=== PATIENT | female | born 1950 | race Caucasian/White ===

== ENCOUNTER → 2023-12-13 14:00 | Outpatient (CLI) | payer MEDICARE, OTHER, SELFPAY ==
[2023-12-13 15:14] LABS: Creatinine Urine Random 110.64 mg/dL
[2023-12-13 15:17] LABS: Add Manual Diff / Slide Review NO; Basophils Absolute Auto 0 /uL (0-100); Basophils Percent Auto 0.7 % (0-2); Eosinophils Absolute Auto 100 /uL (0-450); Eosinophils Percent Auto 1.6 % (2-4); Hematocrit 42.3 % (36-46); Hemoglobin 14.4 g/dL (12.0-16.0); Lymphocytes Absolute Auto 2500 /uL (1100-4500); Lymphocytes Percent Auto 36.5 % (25-40); Mean Corpuscular Hemoglobin 31.8 PG (26-34); Mean Corpuscular Volume 93.6 fL (80-100); Monocytes Absolute Auto 800 /uL (0-900); Monocytes Percent Auto 12.4 % (3-14); Neutrophils Absolute Auto 3300 /uL (1500-7000); Neutrophils Percent Auto 48.8 % (50-75); Platelet Count 246 X10^3/uL (150-400); Red Blood Cell Count 4.52 X10^6/uL (4.0-5.2); Red Cell Distribution Width 13.7 % (11.6-14.8); White Blood Cell Count 6.7 X10^3/uL (4.5-11.0)
[2023-12-13 15:35] LABS: Microalbumin Urine Random < 0.6 mg/dL (0-1.6)
[2023-12-13 15:40] LABS: Alanine Aminotransferase 19 IU/L (<35); Albumin 4.3 g/dL (3.5-5.0); Albumin Globulin Ratio 1.4 (1.0-2.8); Alkaline Phosphatase 92 U/L (38-126); Aspartate Aminotransferase 26 IU/L (14-36); BUN Creatinine Ratio 20.7 (6-22); Bilirubin Total 0.5 mg/dL (0.2-1.3); Blood Urea Nitrogen 24 mg/dL (7-17); Calcium 9.8 mg/dL (8.4-10.2); Carbon Dioxide 25 mmol/L (22-32); Chloride 104 mmol/L (98-107); Cholesterol 132 mg/dL (140-199); Estimated Glomerular Filt Rate 49 mL/min (>60); Glucose 111 mg/dL (80-110); HDL Cholesterol 33 mg/dL (40-60); HEMOLYSIS 45 (0-50); LDL Cholesterol Calculated 54 mg/dL (<100); Sodium 137 mmol/L (137-145); Total Protein 7.3 g/dL (6.3-8.2); Triglycerides 223 mg/dL (35-150)
[2023-12-13 15:49] LABS: NT-proBNP (BNP-Adult 18+) 560 pg/mL (<125)
== END ==
PROVIDERS: PCP Family Medicine; Referring Provider Family Medicine; Visit Provider Family Medicine
DX: E78.5 Hyperlipidemia, unspecified (principal); Z86.73 Personal history of transient ischemic attack (TIA), and cerebral infarction without residual deficits; Z87.09 Personal history of other diseases of the respiratory system; I99.9 Unspecified disorder of circulatory system; N19 Unspecified kidney failure; I50.9 Heart failure, unspecified; I11.0 Hypertensive heart disease with heart failure
CPT/HCPCS: 36415; 80053; 80061; 82043; 82570; 83880; 85025

== ENCOUNTER → 2024-01-11 12:08 | Outpatient (CLI) | payer MEDICARE, OTHER, SELFPAY ==
--- NOTE | 2024-01-11 12:10 | DI.RAD.S_ITS ---
PROCEDURE: XR HIP W PEL IF DONE LT 2V INDICATIONS: L hip pain TECHNIQUE: AP pelvis with lateral view of the left hip. COMPARISON: None. FINDINGS: Bones: No acute fractures or dislocations. Pelvic ring appears intact. No suspicious bony lesions. Mild degenerative spurring at the lateral acetabula bilaterally. Degenerative changes are seen in the included spine. Soft tissues: The visualized bowel gas pattern is normal. No suspicious soft tissue calcifications. Bilateral iliac stent grafts are present. IMPRESSION: 1. No acute bony abnormality. 2. Mild degenerative changes in the hips bilaterally. 3. Degenerative changes are seen in the included spine. Approved by: Rajat Heredia M.D. on 01/11/2024 at 15:27
== END ==
PROVIDERS: PCP Family Medicine; Referring Provider Family Medicine; Visit Provider Family Medicine
DX: M25.552 Pain in left hip (principal)
CPT/HCPCS: 73502

== ENCOUNTER → 2024-02-07 12:35 | Outpatient (CLI) | payer MEDICARE, OTHER, SELFPAY ==
--- NOTE | 2024-02-07 12:38 | DI.US.S_ITS ---
PROCEDURE: US ART LOW EXT BILAT W/HAILEE INDICATIONS: Atherosclerosis of wiyot arteries of extremities TECHNIQUE: Color and pulse Doppler interrogation was performed of both lower extremity arterial systems, with image documentation. COMPARISON: None. FINDINGS: Right lower extremity: HAILEE 0.7. External iliac artery with stent: Patent with mid stent stenosis. Proximal velocity 136 cm/s, mid stent velocity 263 cm/s, distal sent velocity 148 cm/s. Biphasic/triphasic waveforms. Common femoral artery: 133 cm/sec, with triphasic flow. Deep femoral artery: 122 cm/sec, with biphasic flow. Proximal superficial femoral artery: 86 cm/sec, with triphasic flow. Mid superficial femoral artery: 79 cm/sec, with triphasic flow. Distal superficial femoral artery: 77 cm/sec, with triphasic flow. Popliteal artery: Proximal: 55 cm/s, with biphasic flow. Distal: 39 cm/sec, with monophasic, low resistance flow. Posterior tibial artery: 50 cm/sec, with monophasic, low resistance flow. Anterior tibial artery/dorsalis pedis: 17 cm/sec, with monophasic, low resistance flow. Barboza-scale imaging description: There is a distal external iliac artery stent with a mid stent stenosis of 50% or greater. Findings are consistent with a hemodynamically significant popliteal artery stenosis, with low resistance monophasic waveforms distal to this region. Left lower extremity: HAILEE 0.7 Common femoral artery: 50 cm/sec, with parvus tardus monophasic, low resistance flow. Deep femoral artery: 38 cm/sec, with monophasic low resistance flow. Proximal superficial femoral artery: 54 cm/sec, with parvus tardus, monophasic low resistance flow. Mid superficial femoral artery: 59 cm/sec, with parvus tardus, monophasic low resistance flow. Distal superficial femoral artery: 46 cm/sec, with parvus tardus, monophasic low resistance flow. Popliteal artery: 33 cm/sec, with monophasic flow. Posterior tibial artery: 21 cm/sec, with monophasic high resistance flow. Anterior tibial artery/dorsalis pedis: 19 cm/sec, with monophasic high resistance flow. Barboza-scale imaging description: Waveform findings in the common femoral and SFA are consistent with high-grade inflow stenosis or occlusion involving the iliac. Runoff vessel high resistance monophasic waveforms are consistent with small vessel occlusive disease. IMPRESSION: 1. Bilateral ABIs are 0.7. 2. There is a distal right external iliac artery stent, which has a hemodynamically significant mid stent stenosis. 3. Findings in the right lower extremity are consistent with a hemodynamically significant popliteal artery stenosis. 4. Proximal vessel waveforms on the left are consistent with high-grade inflow stenosis or occlusion of the left iliac. 5. Findings on the left suggest distal small vessel hemodynamically significant stenotic or occlusive disease. Dictated by: Aung Harris M.D. on 02/08/2024 at 8:22 Approved by: Aung Harris M.D. on 02/08/2024 at 8:33
--- NOTE | 2024-02-07 13:50 | DI.US.S_ITS ---
PROCEDURE: US RETROPERITONEAL COMP INDICATIONS: ATHEROSCLEROSIS TECHNIQUE: Real-time scanning was performed of the abdominal aorta COMPARISON: [facility], , US ART LOW EXT BILAT W/HAILEE, 02/07/2024, 13:09. FINDINGS: Proximal aorta nonvisualized. Mid aorta measures 2.2 x 1.9 cm. Velocity 62 centimeters/second Distal aorta measures 2.1 x 2.4 cm, 53 centimeters/second Right common iliac artery measures 0.9 cm, 186 centimeters/second Left common iliac artery measures 0.9 cm, 130 centimeters/second. External iliac arteries are also evaluated, and the right external iliac arterial peak systolic velocity is elevated asymmetrically at 185 cm per 2nd. Possible stent noted IMPRESSION: No evidence of abdominal aortic aneurysm or significant stenosis. Elevated peak systolic velocity in the right common iliac artery as well as the right external iliac artery suggests stenosis without occlusion. Approved by: Oscar Monson M.D. on 02/08/2024 at 15:37
== END ==
LOC: US 12:37
PROVIDERS: PCP Family Medicine; Referring Provider Surgery Vascular Surgery; Visit Provider Surgery Vascular Surgery
DX: I70.213 Atherosclerosis of native arteries of extremities with intermittent claudication, bilateral legs (principal); T82.858A Stenosis of other vascular prosthetic devices, implants and grafts, initial encounter
CPT/HCPCS: 76770; 93922; 93925

== ENCOUNTER → 2024-07-25 10:06 | Outpatient (CLI) | payer MEDICARE, OTHER, SELFPAY ==
[2024-07-25 11:02] LABS: Alanine Aminotransferase 17 IU/L (<35); Albumin 4.6 g/dL (3.5-5.0); Albumin Globulin Ratio 1.7 (1.0-2.8); Alkaline Phosphatase 106 U/L (38-126); Aspartate Aminotransferase 24 IU/L (14-36); BUN Creatinine Ratio 17.3 (6-22); Bilirubin Total 0.6 mg/dL (0.2-1.3); Blood Urea Nitrogen 22 mg/dL (7-17); Calcium 9.4 mg/dL (8.4-10.2); Carbon Dioxide 20 mmol/L (22-32); Chloride 108 mmol/L (98-107); Estimated Glomerular Filt Rate 44 mL/min (>60); Globulin 2.7 g/dL (1.7-4.1); Glucose 94 mg/dL (70-99); HEMOLYSIS < 15 (0-50); Potassium 4.7 mmol/L (3.4-5.1); Sodium 141 mmol/L (137-145); Total Protein 7.3 g/dL (6.3-8.2)
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
== END ==
PROVIDERS: PCP Family Medicine; Referring Provider Family Medicine; Visit Provider Family Medicine
DX: I74.5 Embolism and thrombosis of iliac artery (principal); I11.9 Hypertensive heart disease without heart failure; I70.0 Atherosclerosis of aorta; I25.2 Old myocardial infarction; K57.30 Diverticulosis of large intestine without perforation or abscess without bleeding; M45.8 Ankylosing spondylitis sacral and sacrococcygeal region; M51.369 Other intervertebral disc degeneration, lumbar region without mention of lumbar back pain or lower extremity pain; Z86.73 Personal history of transient ischemic attack (TIA), and cerebral infarction without residual deficits; Z95.5 Presence of coronary angioplasty implant and graft; Z90.710 Acquired absence of both cervix and uterus
CPT/HCPCS: 36415; 75635; 80053; Q9967

== ENCOUNTER → 2024-07-28 17:01 | Outpatient (CLI) | payer MEDICARE, OTHER, SELFPAY ==
--- NOTE | 2024-07-28 17:51 | DI.RAD.S_ITS ---
PROCEDURE: XR LUMBAR SPINE 2-3V INDICATIONS: r/o spinal stenosis TECHNIQUE: 3 views of the lumbar spine were acquired. COMPARISON: None. FINDINGS: Bones: 5 [id number] vertebrae are present. There is mild levoconvex scoliosis, also with rotational component. There is also grade 1 retrolisthesis of the L3 and L2 vertebral bodies. No focal osseous lesion seen. Moderate multilevel degenerative disc disease as well as facet arthropathy throughout the lumbar region. Soft tissues: Overlying bowel gas pattern is normal. No suspicious soft tissue calcifications. IMPRESSION: Degenerative changes, spondylolisthesis as well as levoscoliosis. No focal osseous lesion seen. Dictated by: Nikita Sal M.D. on 07/30/2024 at 16:58 Approved by: Nikita Sal M.D. on 07/30/2024 at 16:59
== END ==
LOC: RAD 17:06
PROVIDERS: PCP Family Medicine; Referring Provider Family Medicine; Visit Provider Family Medicine
DX: M51.369 Other intervertebral disc degeneration, lumbar region without mention of lumbar back pain or lower extremity pain (principal); M51.379 Other intervertebral disc degeneration, lumbosacral region without mention of lumbar back pain or lower extremity pain; M47.816 Spondylosis without myelopathy or radiculopathy, lumbar region; M47.817 Spondylosis without myelopathy or radiculopathy, lumbosacral region; M43.16 Spondylolisthesis, lumbar region; M41.9 Scoliosis, unspecified; M54.50 Low back pain, unspecified; R20.0 Anesthesia of skin; R20.2 Paresthesia of skin
CPT/HCPCS: 72100

== ENCOUNTER → 2024-09-12 14:04 | Outpatient (CLI) | payer OTHER, SELFPAY ==
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
== END ==
PROVIDERS: PCP Family Medicine; Referring Provider Family Medicine; Visit Provider Chiropractor
DX: M79.641 Pain in right hand (principal); G89.29 Other chronic pain
CPT/HCPCS: 73130

== ENCOUNTER → 2024-11-24 09:39 | Outpatient (CLI) | payer MEDICARE, OTHER, SELFPAY | PROVIDERS: PCP Family Medicine; Visit Provider Urology | DX: N39.0 Urinary tract infection, site not specified (principal) | CPT/HCPCS: 87077; 87086 ==

== ENCOUNTER → 2025-01-24 14:54 | Outpatient (CLI) | payer MEDICARE, OTHER, SELFPAY ==
[2025-01-24 17:48] LABS: Appearance Urine UA CLEAR; Bilirubin Urine UA NEGATIVE (NEGATIVE); Color Urine UA YELLOW; Glucose Urine UA NEGATIVE (Negative); Ketones Urine UA NEGATIVE (NEGATIVE); Leukocyte Esterase Urine UA 1+ (NEGATIVE); Nitrite Urine UA NEGATIVE (Negative); Occult Blood Urine UA 2+ (Negative); Protein Urine UA NEGATIVE (Negative); Specific Gravity Urine UA 1.015 (1.000-1.035); Urobilinogen Urine UA 0.2 E.U./dL (0.2)
[2025-01-24 17:49] LABS: pH Urine UA 6.0 (4.5-8.0)
[2025-01-24 17:55] LABS: Culture Indicated Urine Specimen Cultured
== END ==
PROVIDERS: PCP Student in an Organized Health Care Education/Training Program; Visit Provider Urology
DX: N39.0 Urinary tract infection, site not specified (principal)
CPT/HCPCS: 81001; 87086

== ENCOUNTER → 2025-01-25 07:37 | Outpatient (CLI) | payer MEDICARE, OTHER, SELFPAY ==
--- NOTE | 2025-01-25 07:38 | DI.NM.S_ITS ---
PROCEDURE: NM SHAJI PERF SPECT R&S PHARM Rest and pharmacological stress myocardial perfusion SPECT with gated imaging and ejection fraction RADIOPHARMACEUTICAL: 24.7 mCi Tc-99m tetrafosmin IV at rest and 26.8 mCi Tc-99m tetrafosmin IV at peak effect of pharmacological stress. [id number] was performed. INDICATIONS: . PQRS ATTESTATIONS: Measure 322 - Is this imaging test primarily performed on a low-risk surgery patient for preoperative evaluation within 30 days preceding their low-risk non-cardiac surgery? Low-risk surgery is defined as cardiac or myocardial infarction less than 1%, including (but not limited to) endoscopic procedures, superficial procedures, cataract surgery, and excisional breast surgery: Answer: No Measure 323 - Is this imaging test performed primarily for the monitoring of an asymptomatic patient who had percutaneous coronary intervention on the visit date or within 2 years of the visit date? Answer: No Measure 324 - Is this imaging test performed primarily for the initial detection and risk assessment on an asymptomatic, low coronary heart disease patient? Low CHD risk definition = clinicians should consider the maximum number of available patient factors used to estimate risk based on [place] (ATP III criteria), typically age, gender, diabetes, smoking status, and use of blood pressure medication, and integrate age appropriate estimates for missing elements, such as LDL or standard blood pressure. Answer: No TECHNIQUE: Radiopharmaceutical was injected at peak stress test, and also at rest. SPECT images were obtained. SPECT myocardial perfusion images were displayed in short axis, horizontal long axis, and vertical long axis views. Gated images were reviewed using [employer] software. COMPARISON: None. CARDIAC STRESS: A pharmacologic stress test was performed under the supervision of an attending staff, using an infusion of 0.4 mg of Lexiscan. Hemodynamic data: There is normal blood pressure and heart rate response to pharmacologic stress. Symptoms: The patient denied anginal chest pain. Aminophylline: None EKG: No diagnostic changes of ischemia; no ectopy. FINDINGS: Raw data: There is good myocardial uptake of radiotracer. No significant motion artifacts. [id number]-[id number] ratio is not available (normal is less than 0.38 for tetrafosmin tracer). Left ventricle function: Gated images demonstrate normal left ventricular wall thickening. No segmental wall motion abnormalities. No transient ischemic dilation; TID is 1.12 (normal less than 1.3). Left ventricle resting end diastolic volume is 130 mL. Left ventricle stress ejection fraction is 61; normal range is above 45%. Myocardial perfusion: Rest images had no perfusion in the basal to mid lateral segment. There was severe perfusion in the basal to mid inferior segment. No perfusion was present in the distal inferior segment wall severe hypoperfusion was present in the distal lateral segment. Stress images demonstrated the same perfusion defects with slight worsening of the hypoperfusion in the mid inferior segment. No prone images obtained. Summed difference score was 0. IMPRESSION: 1. 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 Dictated by: Stevie Dominguez M.D. on 01/26/2025 at 16:37 Approved by: Stevie Dominguez M.D. on 01/26/2025 at 16:40
== END ==
LOC: NUCM 07:37
PROVIDERS: PCP Student in an Organized Health Care Education/Training Program; Referring Provider Student in an Organized Health Care Education/Training Program; Visit Provider Internal Medicine
DX: I25.10 Atherosclerotic heart disease of native coronary artery without angina pectoris (principal)
CPT/HCPCS: 78452; 93017; A9502; J2785